=== PATIENT | male | born 1995 | race Caucasian/White ===

== ENCOUNTER 2017-05-26 23:41 | Emergency (ER) | payer BC ==
[~2017-05-26] VITALS: Ht 180.3 cm; Wt 88.5 kg
[2017-05-26 23:44] VITALS: TEMP 36.7; Ht 180.3 cm; Wt 88.5 kg
[2017-05-27] MEDS ORDERED: KETOROLAC TROMETHAMINE 30 MG/ML VIAL IV STA (00:03)
[2017-05-27 00:07] VITALS: O2SAT 98
[2017-05-27 00:17] LABS: BASO % 0.8 %; BASO ABS # 0.06 K/uL (0-0.2); COMPLETE YES; EOS % 2.2 %; HEMATOCRIT 40.3 % (42-52); IG% 0.3 %; LYMPH % 38.1 %; LYMPH ABS # 2.74 K/uL (1.2-3.4); MEAN CELL VOLUME 88.6 fL (80-100); MEAN CORPUSCULAR HEMOGLOBIN 32.1 pg (25-34); MEAN CORPUSCULAR HGB CONC 36.2 g/dl (32-36); MONO % 8.1 %; NEUT % 50.5 %; PLATELET COUNT 283 K/uL (130-400); RED BLOOD COUNT 4.55 M/uL (4.7-6.1); WHITE BLOOD COUNT 7.19 K/uL (4.8-10.8)
[2017-05-27] MEDS ORDERED: EPP3/2 IM (00:18)
[2017-05-27 00:19] LABS: POINT OF CARE TROPONIN I < 0.030 ng/ml (0-0.045)
[2017-05-27 00:26] LABS: ALT/SGPT 33 U/L (12-78); AST/SGOT 18 U/L (15-37); BLOOD UREA NITROGEN 17 mg/dl (7-18); BUN/CREATININE RATIO 14.5 (10-20); CARBON DIOXIDE 28 mmol/L (21-32); CHLORIDE 106 mmol/L (98-107); GLUCOSE 92 mg/dl (70-99); POTASSIUM 3.4 mmol/L (3.5-5.1); SODIUM 142 mmol/L (136-145)
[2017-05-27 00:31] LABS: ALKALINE PHOSPHATASE 80 U/L (45-117); CKMB/CK RATIO 0.5 (0-3.0)
[2017-05-27] MEDS ORDERED: LORAZEPAM 2 MG/ML 1 ML VIAL IV STA (00:41)
[2017-05-27] MEDS ORDERED: POTASSIUM CHLORIDE 10 MEQ TABCR PO STA (00:46)
--- NOTE | 2017-05-27 01:18 | EMERGENCY ROOM VISIT NOTE ---
History First contact with patient: 23:49 Chief Complaint: CARDIAC ASSESSMENT Stated Complaint: CHEST TIGHTNESS Nursing Triage Summary: Patient reports constant chest tightness for one week that worsens at time. History of Present Illness The patient is a 21 year old male who presents to the Emergency Room with complaints of left-sided chest pain for the past week that comes and goes in severity. Currently 5 out of 10. Patient states another activity makes it worse and nothing makes it better. No injury to the area. Patient states he has occasional dyspnea. He chews tobacco. No recent travel. No family history of blood clots no personal history of blood clots. There is a family history of heart disease at this grandmother having a stent in her 60s. Patient denies fevers, cough, congestion, nausea, vomiting, diarrhea, back pain , leg pain or swelling, abdominal pain, injury to the area. He is tolerating by mouth fluids and food. Patient states he exercises regularly but is not this past week because of work. No problems in the past with exercise with running and lifting weights. Review of Systems See HPI for pertinent positives & negatives. A total of 10 systems reviewed and were otherwise negative. Past Medical/Surgical History none Social History Smoking Status: Never Smoker Smokeless Tobacco Use: Yes Alcohol Use: occasionally Drug Use: none Occupation Status: [employer] student Current/Historical Medications Scheduled PRN Epinephrine (Epipen), 0.3 MG IM UD PRN for ALLERGIC REACTION Physical Exam Vital Signs Date Time Temp Pulse Resp B/P (MAP) Pulse Ox O2 Delivery O2 Flow Rate FiO2 05/27/17 00:07 98 Room Air 05/27/17 00:07 98 Room Air 05/27/17 00:00 98 Room Air 05/26/17 23:59 67 05/26/17 23:44 36.7 67 18 170/89 100 Room Air Physical Exam VITALS: Vitals are noted on the nurse's note and reviewed by myself. Vital signs hypertensive GENERAL: Pleasant young male anxious-appearing, in no acute distress, nondiaphoretic, well-developed well-nourished. SKIN: The skin was without rashes, erythema, edema, or bruising. There is no tenting of the skin. Capillary reflex less than 2 seconds. HEAD: Normocephalic atraumatic. EARS: External auditory canals clear, tympanic membranes pearly watson without erythema or effusion bilaterally. EYES: Pupils equal round and reactive to light and accommodation. Conjunctivae without injection, sclerae without icterus. Extraocular movements intact. NOSE: Patent, turbinates without inflammation or discharge. MOUTH: Mucous membranes moist. Pharynx without erythema or exudate. Uvula midline. Airway patent. Tongue does not deviate. NECK: Supple without nuchal rigidity. No lymphadenopathy. No thyromegaly. Cervical spine is nontender. No JVD. HEART: Regular rate and rhythm without murmurs gallops or rubs. Chest nontender to palpation LUNGS: Clear to auscultation bilaterally without wheezes, rales or rhonchi. No dullness to percussion. No retractions or accessory muscle use. ABDOMEN: Positive bowel sounds x 4. Normal tympanic percussion. Soft, nontender, without masses or organomegaly. Rodríguez sign negative. No guarding or rebound tenderness. MUSCULOSKELETAL: No muscle atrophy, erythema, or edema noted. NEURO: Patient was alert and oriented to person place and time. Normal sensation to light and sharp touch. No focal neurological deficits. Medical Decision & Procedures Laboratory Results 05/26/17 23:56 Red Blood Count 4.55, Mean Corpuscular Volume 88.6, Mean Corpuscular Hemoglobin 32.1, Mean Corpuscular Hemoglobin Concent 36.2, Mean Platelet Volume 9.0, Neutrophils (%) (Auto) 50.5, Lymphocytes (%) (Auto) 38.1, Monocytes (%) (Auto) 8.1, Eosinophils (%) (Auto) 2.2, Basophils (%) (Auto) 0.8, Neutrophils # (Auto) 3.63, Lymphocytes # (Auto) 2.74, Monocytes # (Auto) 0.58, Eosinophils # (Auto) 0.16, Basophils # (Auto) 0.06 05/26/17 23:56 Test 05/26/17 23:56 05/27/17 00:00 White Blood Count 7.19 K/uL (4.8-10.8) Red Blood Count 4.55 M/uL (4.7-6.1) Hemoglobin 14.6 g/dL (14.0-18.0) Hematocrit 40.3 % (42-52) Mean Corpuscular Volume 88.6 fL (80-100) Mean Corpuscular Hemoglobin 32.1 pg (25-34) Mean Corpuscular Hemoglobin Concent 36.2 g/dl (32-36) Platelet Count 283 K/uL (130-400) Mean Platelet Volume 9.0 fL (7.4-10.4) Neutrophils (%) (Auto) 50.5 % Lymphocytes (%) (Auto) 38.1 % Monocytes (%) (Auto) 8.1 % Eosinophils (%) (Auto) 2.2 % Basophils (%) (Auto) 0.8 % Neutrophils # (Auto) 3.63 K/uL (1.4-6.5) Lymphocytes # (Auto) 2.74 K/uL (1.2-3.4) Monocytes # (Auto) 0.58 K/uL (0.11-0.59) Eosinophils # (Auto) 0.16 K/uL (0-0.5) Basophils # (Auto) 0.06 K/uL (0-0.2) RDW Standard Deviation 39.5 fL (36.4-46.3) RDW Coefficient of Variation 12.3 % (11.5-14.5) Immature Granulocyte % (Auto) 0.3 % Immature Granulocyte # (Auto) 0.02 K/uL (0.00-0.02) Anion Gap 8.0 mmol/L (3-11) Est Creatinine Clear Calc Drug Dose 102.8 ml/min Estimated GFR () 98.9 Estimated GFR (Non- 85.3 BUN/Creatinine Ratio 14.5 (10-20) Calcium Level 9.0 mg/dl (8.5-10.1) Total Bilirubin 0.3 mg/dl (0.2-1) Direct Bilirubin 0.1 mg/dl (0-0.2) Aspartate Amino Transf (AST/SGOT) 18 U/L (15-37) Alanine Aminotransferase (ALT/SGPT) 33 U/L (12-78) Alkaline Phosphatase 80 U/L (45-117) Total Creatine Kinase 182 U/L (39-308) Creatine Kinase MB 1.0 ng/ml (0.5-3.6) Creatine Kinase MB Ratio 0.5 (0-3.0) Troponin I < 0.015 ng/ml (0-0.045) Total Protein 7.8 gm/dl (6.4-8.2) Albumin 4.4 gm/dl (3.4-5.0) Lipase 105 U/L (73-393) Bedside D-Dimer 29 ng/mlFEU (0-450) Bedside Troponin I < 0.030 ng/ml (0-0.045) Medications Administered Medications (Trade) Dose Ordered Sig/Chandni Route Start Time Stop Time Status Last Admin Dose Admin Ketorolac Tromethamine (Toradol Inj) 30 mg NOW STAT IV 05/27/17 00:03 05/27/17 00:05 DC 05/27/17 00:14 30 MG Lorazepam (Ativan Inj) 1 mg NOW STAT IV 05/27/17 00:41 05/27/17 00:42 DC 05/27/17 00:56 1 MG Potassium Chloride (Klor-Con M10) 10 meq NOW STAT PO 05/27/17 00:46 05/27/17 00:47 DC 05/27/17 00:56 10 MEQ ED Course Prior records/ancillary studies reviewed. Triage Nursing notes reviewed. Additional history obtained from family The patient's history was concerning for chest pain. Differential diagnosis: Etiologies such as cardiac ischemia, aortic dissection, pulmonary embolism, pneumonia, pneumothorax, musculoskeletal, infections, pericarditis, myocarditis , esophageal rupture, gastrointestinal, as well as others were entertained. Physical examination: As above. ER treatment provided: Toradol, Ativan On reassessment the patient felt better. Diagnostic interpretation by me: The electrocardiogram was negative for pathologic change. Normal sinus, normal intervals, no acute ST-T wave changes, rate of 73. Impression normal sinus rhythm interpreted by myself The labs revealed negative troponin. Negative d-dimer. Imaging studies: Chest x-ray with no acute consolidation, pneumothorax or free air per my interpretation Exam and history seem consistent with noncardiac chest pain. Patient is well- appearing. Normal EKG. Negative. Negative d-dimer. He was advised to try anti-inflammatories for his symptoms and to follow-up family care in a few days or here in the ER sooner for chest pain, difficulty breathing, worsening signs or symptoms or as needed. Patient denied any IV drug abuse. He was well- appearing.By the evaluation outlined above emergent etiologies such as cardiac ischemia, aortic dissection, pulmonary embolism, pneumonia, pneumothorax, infections, pericarditis, myocarditis, gastrointestinal, as well as others were deemed relatively unlikely. The pt informed about the findings as listed above. All questions were answered and pleased with the treatment. Return instructions were outlined and the patient was discharged in stable condition. Referral: The patient was referred back to primary care physician for follow-up in 2 to 3 days for a recheck of the current condition. Case reviewed with my attending Medical Decision As above Medication Reconcilliation Current Medication List: was personally reviewed by me Blood Pressure Screening Patient's blood pressure: Elevated blood pressure Blood pressure disposition: Referred to PCP Impression Primary Impression: Precordial chest pain Departure Information Dispostion Home / Self-Care Condition GOOD Referrals [facility] (PCP) Patient Instructions [facility] Additional Instructions Ibuprofen(Motrin, Advil) may be used for fever or pain. Use 600mg every six hours as needed. Take with food. Avoid using more than 2400mg in a 24 hour period. Do not use 2400mg per day for more than three consecutive days without physician direction. Prolonged inappropriate use can lead to stomach upset or ulcers. (AND/OR) Acetaminophen(Tylenol) may be used for fever or pain. Use 1000mg every six hours as needed. Avoid using more than 3000mg in a 24 hour period. Rest and drink plenty of fluids as tolerated. Continue current medications. Avoid strenuous activities and anything that worsens your pain. Resume normal activities once your symptoms resolve. Return to the ER immediately for worsening or persistent chest pain, abdominal pain, vomiting, fevers, chest pains, difficulty breathing, worsening of your condition, or as needed. Follow up with your primary physician in 2-3 days for a recheck of your current condition.
[2017-05-27 01:25] VITALS: BP 128/74; PULSE 78; O2SAT 98
--- NOTE | 2017-05-27 07:14 | DIAGNOSTIC IMAGING REPORT ---
CHEST ONE VIEW PORTABLE CLINICAL HISTORY: 21 years-old Male presenting with CHEST PAIN. TECHNIQUE: Portable upright AP view of the chest was obtained. COMPARISON: None. FINDINGS: Cardiomediastinal silhouette normal. Lungs and pleural spaces clear. Osseous structures normal. Upper abdomen normal. IMPRESSION: 1. No acute cardiopulmonary disease. Electronically signed by: Star Trujillo M.D. 05/27/2017 7:12 AM Dictated Date/Time: 05/27/2017 7:12 AM
== END 2017-05-27 01:26 | disposition home or self-care (01) ==
LOC: C.EDB 23:42
DX: R07.2 Precordial pain (principal); F17.220 Nicotine dependence, chewing tobacco, uncomplicated

== ENCOUNTER → 2018-01-14 | Outpatient (CLI) | payer BC ==
[~2018-01-14] MED LIST: EPP3/2 IM
--- NOTE | 2018-01-14 15:30 | DIAGNOSTIC IMAGING REPORT ---
SCROTAL ULTRASOUND CLINICAL HISTORY: TESTICULAR LUMP COMPARISON STUDY: None. TECHNIQUE: Grayscale and color and duplex Doppler sonography of the scrotum was performed. FINDINGS: The right testis measures 4.4 x 3.3 x 2.7 cm and the left measures 4.1 x 3.5 x 2.3 cm. There is no testicular mass. Color flow within each testis is symmetric. Possible small bilateral varicoceles. There is no evidence for epididymitis. A few left epididymal cysts measure up to 9 mm. IMPRESSION: 1. Normal sonographic appearance of the testes. No testicular mass. 2. Several left epididymal cysts. A 9 mm epididymal cyst represents the palpable abnormality. 3. Possible small bilateral varicoceles. Electronically signed by: Nic Miner M.D. 01/14/2018 3:28 PM Dictated Date/Time: 01/14/2018 11:46 AM
== END | disposition home or self-care (01) ==
LOC: C.ULTR 10:48
PROVIDERS: ATTEND Obstetrics & Gynecology
DX: N50.3 Cyst of epididymis (principal)